=== PATIENT | female | born 1990 | race Hispanic/Latino ===

== ENCOUNTER 2020-03-08 02:15 | Observation (INO) | payer OTHER ==
[2020-03-08 03:06] LABS: Absolute Lymphocytes (CBC) 4.6 K/uL (0.7-4.9); Basophils % 0.8 % (0-1.3); Hematocrit 41.7 % (36.0-45.0); MPV 10.2 fL (7.6-11.3); Protime INR 0.97; RBC Red Blood Cell Count 4.55 M/uL (3.86-4.86)
[2020-03-08 03:13] LABS: BUN Blood Urea Nitrogen 12 mg/dL (7-18); Bicarbonate 24 mmol/L (21-32); Glucose Level 144 mg/dL (74-106); Potassium 3.7 mmol/L (3.5-5.1); Sodium Level 141 mmol/L (136-145)
--- NOTE | 2020-03-08 03:46 | EDPHYS ---
Physician Documentation [facility] Name: Bernard Guerra Age: 29 yrs Sex: Female : 1990 Arrival Date: 03/08/2020 Time: 02:15 Bed 8 Private MD: ED Physician Aroldo Vazquez HPI: 03/08 04:06 This 29 yrs old Female presents to ER via Ambulatory with complaints of S/S of tw4 Possible Stroke. 04:06 The patient's problem is reported as a facial droop, weakness, in the left lower tw4 extremity. Duration: yesterday, The episode is continuous. Associated signs and symptoms: The patient has no apparent associated signs or symptoms. Severity of symptoms: At their worst the symptoms were mild in the emergency department the symptoms are unchanged. The patient has not experienced similar symptoms in the past. DOCTOR OF RADIOLOGY: 02:30 LMP N/A - Irregular menses mt2 Historical: - Allergies: 02:29 Sulfa (Sulfonamide Antibiotics); mt2 02:29 Cipro PO; mt2 - PMHx: 02:29 Asthma; Anxiety; mt2 - Immunization history:: Adult Immunizations up to date. - Social history:: Smoking status: Patient denies any tobacco usage or history of. ROS: 04:06 Constitutional: Negative for fever, chills, and weight loss, Eyes: Negative for injury, tw4 pain, redness, and discharge, Cardiovascular: Negative for chest pain, palpitations, and edema, Respiratory: Negative for shortness of breath, cough, wheezing, and pleuritic chest pain, Abdomen/GI: Negative for abdominal pain, nausea, vomiting, diarrhea, and constipation, Back: Negative for injury and pain, MS/Extremity: Negative for injury and deformity, Skin: Negative for injury, rash, and discoloration. 04:06 Neuro: Positive for numbness, weakness. Exam: 04:06 Radiologist reports: no acute changes tw4 04:06 Constitutional: This is a well developed, well nourished patient who is awake, alert, and in no acute distress. Head/Face: Normocephalic, atraumatic. Cardiovascular: Regular rate and rhythm with a normal S1 and S2. No gallops, murmurs, or rubs. Normal PMI, no JVD. No pulse deficits. Respiratory: Lungs have equal breath sounds bilaterally, clear to auscultation and percussion. No rales, rhonchi or wheezes noted. No increased work of breathing, no retractions or nasal flaring. Abdomen/GI: Soft, non-tender, with normal bowel sounds. No distension or tympany. No guarding or rebound. No evidence of tenderness throughout. Back: No spinal tenderness. No costovertebral tenderness. Full range of motion. MS/ Extremity: Pulses equal, no cyanosis. Neurovascular intact. Full, normal range of motion. 04:06 Neuro: Orientation: is normal, Mentation: is normal, Motor: Strength is 3/5 in the right leg. Vital Signs: 02:25 BP 119 / 81; Pulse 80; Resp 16; Temp 98.0(O); Pulse Ox 99% on R/A; Pain 8/10; mt2 03:11 BP 123 / 59; Pulse 70; Resp 16; Pulse Ox 97% on R/A; Pain 8/10; mt2 04:10 BP 115 / 54; Pulse 80; Resp 16; Pulse Ox 98% on R/A; Pain 8/10; mt2 04:13 BP 120 / 80; Pulse 16; Resp 65; Pulse Ox 97% ; Pain 5/10; mt2 08:07 BP 118 / 66; Pulse 55; Resp 18; Temp 97.8; Pulse Ox 99% on R/A; em NIH Stroke Scale Scores: 02:25 NIHSS Score: 10 mt2 03:00 NIHSS Score: 9 mt2 04:00 NIHSS Score: 10 mt2 MDM: 02:18 Patient medically screened. tw4 04:14 Differential diagnosis: CVA. Data reviewed: vital signs, nurses notes. Data tw4 interpreted: Pulse oximetry: Interpretation: normal. Test interpretation: by ED physician or midlevel provider: ECG. Counseling: I had a detailed discussion with the patient and/or guardian regarding: the historical points, exam findings, and any diagnostic results supporting the discharge/admit diagnosis, lab results, radiology results. 03/08 02:32 Order name: Basic Metabolic Panel; Complete Time: 03:58 mt2 03/08 03:59 Interpretation: Normal except: GLUC 144; CL 111. tw4 03/08 02:32 Order name: CBC with Diff; Complete Time: 03:58 mt2 03/08 03:59 Interpretation: Normal except: WBC 11.3. tw4 03/08 02:32 Order name: Protime (+inr); Complete Time: 03:58 mt2 03/08 03:59 Interpretation: Within normal limits: PT 11.5. tw4 03/08 02:32 Order name: Ptt, Activated; Complete Time: 03:58 mt2 03/08 03:59 Interpretation: Within normal limits: PTT 35.5. tw4 03/08 02:54 Order name: Glucose, Ancillary Testing; Complete Time: 03:58 EDMS 03/08 03:59 Interpretation: Normal except: GLUC,ANCIL 133. tw4 03/08 04:30 Order name: COVID-19 mt2 03/08 02:32 Order name: CT Stroke Brain w/o Contrast 03/08 02:32 Order name: Stroke CXR 1 View 2 03/08 02:32 Order name: EKG; Complete Time: 02:32 mt2 03/08 02:32 Order name: Accucheck; Complete Time: 02:46 mt2 03/08 02:32 Order name: Cardiac monitoring; Complete Time: 02:46 03/08 02:32 Order name: EKG - Nurse/Tech; Complete Time: 02:46 mt2 03/08 05:58 Order name: CORONAVIRUS EDKS 03/08 06:55 Order name: SARS-COV-2 RT PCR [facility] 03/08 02:32 Order name: IV Saline Lock; Complete Time: 03:23 mt2 03/08 02:32 Order name: Labs collected and sent; Complete Time: 02:47 mt03/08 02:32 Order name: NPO; Complete Time: 02:46 03/08 02:32 Order name: O2 Per Protocol; Complete Time: 02:46 mt2 03/08 02:32 Order name: O2 Sat Monitoring; Complete Time: 02:47 mt2 03/08 02:32 Order name: Stroke Swallow Screen; Complete Time: 05:05 mt2 EC:06 Rate is 91 beats/min. Rhythm is regular. QRS Girard is Normal. SD interval is normal. QRS tw4 interval is normal. QT interval is normal. No Q waves. T waves are Normal. No ST changes noted. Clinical impression: Normal ECG. Interpreted by me. Reviewed by me. Administered Medications: No medications were administered Point of Care Testing: Blood Glucose: 02:30 Blood Glucose: 133 mg/dL; mt2 Ranges: Critical Glucose Levels:Adult <50 mg/dl or >400 mg/dl <40 mg/dl or >180 mg/dl Disposition: 03/08/20 03:45 Hospitalization ordered by Mary Dubose for Inpatient Admission. 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 - Bed requested for Telemetry/MedSurg (Inpatient). - Status is Inpatient Admission. ph - Condition is Stable. - Problem is new. - Symptoms have improved. NIH Stroke Scale - NIH Stroke Score Date: 03/08/2020 Time: 02:25 Total Score = 10 1a. Level of Consciousness (LOC) - 0(Alert) 1b. Level of Consciousness (LOC) (Year \T\ Age) - 0(Both) 1c. LOC Commands (Open \T\ Closes Eyes/Pinion Sorter) - 0(Both) 2. Best Gaze (Lateral Gaze Paresis) - 1(Partial gaze palsy) 3. Visual Field Loss - 0(No visual loss) 4. Facial Palsy - 2(Partial paralysis) 5a. Left Arm: Motor (10-second hold) - 0(No drift) 5b. Right Arm: Motor (10-second hold) - 0(No drift) 6a. Left Leg: Motor (5-second hold - always test supine) - 0(No drift) 6b. Right Leg: Motor (5-second hold - always test supine) - 3(No effort against gravity) 7. Limb Ataxia (finger/nose \T\ heel/webb - test with eyes open) - 1(Present in one limb) 8. Sensory Loss (pinprick arms/legs/face) - 1(Mild to moderate loss) 9. Best Language: Aphasia (description/naming/reading) - 1(Mild to moderate aphasia) 10. Dysarthria (speech clarity - read or repeat words) - 1(Mild to Moderate) 11. Extinction and Inattention (visual/tactile/auditory/spatial/personal) - 0(No abnormality) Initials: mt2 NIH Stroke Scale - NIH Stroke Score Date: 03/08/2020 Time: 03:00 Total Score = 9 1a. Level of Consciousness (LOC) - 0(Alert) 1b. Level of Consciousness (LOC) (Year \T\ Age) - 0(Both) 1c. LOC Commands (Open \T\ Closes Eyes/Pinion Sorter) - 0(Both) 2. Best Gaze (Lateral Gaze Paresis) - 1(Partial gaze palsy) 3. Visual Field Loss - 0(No visual loss) 4. Facial Palsy - 1(Minor Paralysis) 5a. Left Arm: Motor (10-second hold) - 0(No drift) 5b. Right Arm: Motor (10-second hold) - 0(No drift) 6a. Left Leg: Motor (5-second hold - always test supine) - 0(No drift) 6b. Right Leg: Motor (5-second hold - always test supine) - 3(No effort against gravity) 7. Limb Ataxia (finger/nose \T\ heel/webb - test with eyes open) - 1(Present in one limb) 8. Sensory Loss (pinprick arms/legs/face) - 1(Mild to moderate loss) 9. Best Language: Aphasia (description/naming/reading) - 1(Mild to moderate aphasia) 10. Dysarthria (speech clarity - read or repeat words) - 1(Mild to Moderate) 11. Extinction and Inattention (visual/tactile/auditory/spatial/personal) - 0(No abnormality) Initials: mt2 NIH Stroke Scale - NIH Stroke Score Date: 03/08/2020 Time: 04:00 Total Score = 10 1a. Level of Consciousness (LOC) - 0(Alert) 1b. Level of Consciousness (LOC) (Year \T\ Age) - 0(Both) 1c. LOC Commands (Open \T\ Closes Eyes/Pinion Sorter) - 0(Both) 2. Best Gaze (Lateral Gaze Paresis) - 1(Partial gaze palsy) 3. Visual Field Loss - 1(Partial hemianopia) 4. Facial Palsy - 1(Minor Paralysis) 5a. Left Arm: Motor (10-second hold) - 0(No drift) 5b. Right Arm: Motor (10-second hold) - 0(No drift) 6a. Left Leg: Motor (5-second hold - always test supine) - 0(No drift) 6b. Right Leg: Motor (5-second hold - always test supine) - 3(No effort against gravity) 7. Limb Ataxia (finger/nose \T\ heel/webb - test with eyes open) - 1(Present in one limb) 8. Sensory Loss (pinprick arms/legs/face) - 1(Mild to moderate loss) 9. Best Language: Aphasia (description/naming/reading) - 1(Mild to moderate aphasia) 10. Dysarthria (speech clarity - read or repeat words) - 1(Mild to Moderate) 11. Extinction and Inattention (visual/tactile/auditory/spatial/personal) - 0(No abnormality) Initials: mt2 Signatures: Dispatcher [employer] EDMS Juanita Blake Zarina Larsen RN RN Caren May RN RN Aroldo Vazquez MD MD tw4 Micaela Conley RN RN mt2 Corrections: (The following items were deleted from the chart) 03:11 02:59 Allergies: No Known Allergies; mt2 mt2 03:11 02:59 PMHx: None; mt2 mt2 04:00 03:45 Hospitalization Ordered by Mary Dubose MD for Inpatient Admission. 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 Bed requested for Telemetry/MedSurg (Inpatient). Status is Inpatient Admission. Condition is Stable. Problem is new. Symptoms have improved. tw4 07:52 04:00 03/08/2020 03:45 Hospitalization Ordered by Mary Dubose MD for bd Inpatient Admission. 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 Bed requested for [facility] ER HOLD. Status is Inpatient Admission. Condition is Stable. Problem is new. Symptoms have improved. 09:35 07:52 03/08/2020 03:45 Hospitalization Ordered by Mary Dubose MD for Inpatient Admission. 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 Bed requested for Telemetry/MedSurg (Inpatient). Status is Inpatient Admission. Condition is Stable. Problem is new. Symptoms have improved. bd
--- NOTE | 2020-03-08 03:46 | ER ---
Nurse's Notes [facility] Name: Bernard Guerra Age: 29 yrs Sex: Female : 1990 Arrival Date: 03/08/2020 Time: 02:15 Bed 8 Private MD: Diagnosis: Weakness;Chavez's palsy Presentation: 03/08 02:22 Method Of Arrival: Ambulatory mt2 02:25 Chief complaint: Patient states: PER PT CHAO ALL DAY AND RLE NUMBNESS AND LOW GRADE TEM. mt2 WAS TESTED FOR COVID ON SATURDAY. 1 HOUR PRIOR TO ARRIVAL NOTICED LOSS OF TASTE AND FACIAL DROOPING. Coronavirus screen: Client denies travel out of the [place] in the last 14 days. headache, loss of taste or smell, Client presents with at least one sign or symptom that may indicate coronavirus-19. Standard/surgical mask placed on the client. Provider contacted for isolation considerations. The client indicates previous COVID test results are pending. Date of collection: March 07, 2020. Ebola Screen: No symptoms or risks identified at this time. 02:25 An acute neurological deficit is present. The charge nurse has been notified. The mt2 patient has been moved to a treatment area. The patients blood glucose was checked before arriving to the hospital and was found to be normal. Initial Sepsis Screen: Does the patient meet any 2 criteria? No. Patient's initial sepsis screen is negative. Does the patient have a suspected source of infection? No. Patient's initial sepsis screen is negative. Risk Assessment: Do you want to hurt yourself or someone else? Patient reports no desire to harm self or others. Onset of symptoms was March 08, 2020 at 01:00. Care prior to arrival: None. 02:25 Acuity: BRENDEN 2 mt2 Triage Assessment: 02:25 The onset of the patients symptoms was March 08, 2020 at 01:00. General: Appears mt2 uncomfortable, Behavior is cooperative. Pain: Complains of pain in right leg Pain currently is 8 out of 10 on a pain scale. EENT: Reports difficulty swallowing since 0100. Neuro: Reports headache since 03/07/2020 numbness FACIAL DROOP. Cardiovascular: No deficits noted. Respiratory: No deficits noted. GI: No deficits noted. : No deficits noted. Derm: No deficits noted. Musculoskeletal: Reports pain in right leg since 03/07/2020. 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 - Social history:: Smoking status: Patient denies any tobacco usage or history of. Screenin:50 Abuse screen: Denies threats or abuse. Nutritional screening: No deficits noted. mt2 Tuberculosis screening: No symptoms or risk factors identified. Fall Risk None identified. Assessment: 02:25 Patient has been NPO before screening. The patient is alert, and able to follow mt2 commands. The patient exhibits slurred or garbled speech. The patient is exhibiting difficulty speaking. The patient does not exhibit difficulty understanding words. The patient is able to swallow own secretions with no drooling or need for suction. 02:25 Provider notified of bedside swallow screening results: Aroldo Vazquez MD. mt2 02:25 VAN Scoring: Arm Drift: Patients demonstrates NO arm weakness. Patient is VAN Negative. mt2 Visual Disturbance: No visual disturbance noted. Aphasia: Expressive aphasia noted. Provider notified of +VAN scoring. Neglect: No neglect noted. T-PA (Activase) Screening:. 03:00 Reassessment: No changes from previously documented assessment. Patient and/or family mt2 updated on plan of care and expected duration. Pain level reassessed. General: Appears uncomfortable, Behavior is cooperative. Pain: Complains of pain in face Pain currently is 5 out of 10 on a pain scale. Quality of pain is described as aching. 03:30 The patient did not tolerate one teaspoon of water. Drooling, immediate coughing, mt2 gurgling, or clearing of the throat was noted. Bedside swallow screening discontinued. Patient kept NPO until cleared by Speech Therapy or Physician. The patient did not tolerate 90mL of water. Drooling, immediate coughing, gurgling, or clearing of the throat was noted. The patient failed the bedside swallow screening. The patient will be kept NPO until cleared by Speech Therapy or Physician. 04:10 Reassessment: No changes from previously documented assessment. Patient and/or family mt2 updated on plan of care and expected duration. Pain level reassessed. Patient is alert, oriented x 3, equal unlabored respirations, skin warm/dry/pink. Reassessment: PATIENT ADMITTED AN ED HOLD. DEFER TO [facility] CHARTING AND ORDERS. General: Appears uncomfortable, Behavior is cooperative. Pain: Complains of pain in face Pain currently is 8 out of 10 on a pain scale. Quality of pain is described as aching. Vital Signs: 02:25 BP 119 / 81; Pulse 80; Resp 16; Temp 98.0(O); Pulse Ox 99% on R/A; Pain 8/10; mt2 03:11 BP 123 / 59; Pulse 70; Resp 16; Pulse Ox 97% on R/A; Pain 8/10; mt2 04:10 BP 115 / 54; Pulse 80; Resp 16; Pulse Ox 98% on R/A; Pain 8/10; mt2 04:13 BP 120 / 80; Pulse 16; Resp 65; Pulse Ox 97% ; Pain 5/10; mt2 08:07 BP 118 / 66; Pulse 55; Resp 18; Temp 97.8; Pulse Ox 99% on R/A; em NIH Stroke Scale Scores: 02:25 NIHSS Score: 10 mt2 03:00 NIHSS Score: 9 mt2 04:00 NIHSS Score: 10 mt2 ED Course: 02:15 Patient arrived in ED. bp1 02:17 Micaela Conley RN is Primary Nurse. mt2 02:18 Aroldo Vazquez MD is Attending Physician. tw4 02:25 Arm band placed on right wrist. EKG completed in triage. Results shown to MD. EKG mt2 completed in triage. Results shown to MD. 02:25 Patient has correct armband on for positive identification. Bed in low position. Call mt2 light in reach. Side rails up X 1. 02:47 CT Stroke Brain w/o Contrast In Process Unspecified. EDMS 02:59 Triage completed. mt2 03:12 Inserted saline lock: 20 gauge in left antecubital area, using aseptic technique. mt2 03:22 Stroke CXR 1 View In Process Unspecified. EDMS 03:44 Mary Dubose MD is Hospitalizing Provider. tw4 04:10 No provider procedures requiring assistance completed. Patient admitted, IV remains in mt2 place. 05:06 COVID-19 Sent. mt2 Administered Medications: No medications were administered Point of Care Testing: Blood Glucose: 02:30 Blood Glucose: 133 mg/dL; mt2 Ranges: Outcome: 03:45 Decision to Hospitalize by Provider. tw4 04:10 Admitted to ER Hold. Please see [employer] for further documentation. mt2 04:10 Condition: unchanged 04:10 Instructed on the need for admit. 09:35 Patient left the ED. NIH Stroke Scale - NIH Stroke Score Date: 03/08/2020 Time: 02:25 Total Score = 10 1a. Level of Consciousness (LOC) - 0(Alert) 1b. Level of Consciousness (LOC) (Year \T\ Age) - 0(Both) 1c. LOC Commands (Open \T\ Closes Eyes/Adhesive Bandage Machine Operator) - 0(Both) 2. Best Gaze (Lateral Gaze Paresis) - 1(Partial gaze palsy) 3. Visual Field Loss - 0(No visual loss) 4. Facial Palsy - 2(Partial paralysis) 5a. Left Arm: Motor (10-second hold) - 0(No drift) 5b. Right Arm: Motor (10-second hold) - 0(No drift) 6a. Left Leg: Motor (5-second hold - always test supine) - 0(No drift) 6b. Right Leg: Motor (5-second hold - always test supine) - 3(No effort against gravity) 7. Limb Ataxia (finger/nose \T\ heel/webb - test with eyes open) - 1(Present in one limb) 8. Sensory Loss (pinprick arms/legs/face) - 1(Mild to moderate loss) 9. Best Language: Aphasia (description/naming/reading) - 1(Mild to moderate aphasia) 10. Dysarthria (speech clarity - read or repeat words) - 1(Mild to Moderate) 11. Extinction and Inattention (visual/tactile/auditory/spatial/personal) - 0(No abnormality) Initials: [facility] NIH Stroke Scale - NIH Stroke Score Date: 03/08/2020 Time: 03:00 Total Score = 9 1a. Level of Consciousness (LOC) - 0(Alert) 1b. Level of Consciousness (LOC) (Year \T\ Age) - 0(Both) 1c. LOC Commands (Open \T\ Closes Eyes/Adhesive Bandage Machine Operator) - 0(Both) 2. Best Gaze (Lateral Gaze Paresis) - 1(Partial gaze palsy) 3. Visual Field Loss - 0(No visual loss) 4. Facial Palsy - 1(Minor Paralysis) 5a. Left Arm: Motor (10-second hold) - 0(No drift) 5b. Right Arm: Motor (10-second hold) - 0(No drift) 6a. Left Leg: Motor (5-second hold - always test supine) - 0(No drift) 6b. Right Leg: Motor (5-second hold - always test supine) - 3(No effort against gravity) 7. Limb Ataxia (finger/nose \T\ heel/webb - test with eyes open) - 1(Present in one limb) 8. Sensory Loss (pinprick arms/legs/face) - 1(Mild to moderate loss) 9. Best Language: Aphasia (description/naming/reading) - 1(Mild to moderate aphasia) 10. Dysarthria (speech clarity - read or repeat words) - 1(Mild to Moderate) 11. Extinction and Inattention (visual/tactile/auditory/spatial/personal) - 0(No abnormality) Initials: [facility] NIH Stroke Scale - NIH Stroke Score Date: 03/08/2020 Time: 04:00 Total Score = 10 1a. Level of Consciousness (LOC) - 0(Alert) 1b. Level of Consciousness (LOC) (Year \T\ Age) - 0(Both) 1c. LOC Commands (Open \T\ Closes Eyes/Adhesive Bandage Machine Operator) - 0(Both) 2. Best Gaze (Lateral Gaze Paresis) - 1(Partial gaze palsy) 3. Visual Field Loss - 1(Partial hemianopia) 4. Facial Palsy - 1(Minor Paralysis) 5a. Left Arm: Motor (10-second hold) - 0(No drift) 5b. Right Arm: Motor (10-second hold) - 0(No drift) 6a. Left Leg: Motor (5-second hold - always test supine) - 0(No drift) 6b. Right Leg: Motor (5-second hold - always test supine) - 3(No effort against gravity) 7. Limb Ataxia (finger/nose \T\ heel/webb - test with eyes open) - 1(Present in one limb) 8. Sensory Loss (pinprick arms/legs/face) - 1(Mild to moderate loss) 9. Best Language: Aphasia (description/naming/reading) - 1(Mild to moderate aphasia) 10. Dysarthria (speech clarity - read or repeat words) - 1(Mild to Moderate) 11. Extinction and Inattention (visual/tactile/auditory/spatial/personal) - 0(No abnormality) Initials: mt2 Signatures: Dispatcher [employer] Guzman Walker, RN Zarina Sweeney RN RN Aroldo Vazquez MD MD tw4 Larisa Choi Marlene, RN RN mt2 Corrections: (The following items were deleted from the chart) 03:11 02:59 Allergies: No Known Allergies; mt2 mt2 03:11 02:59 PMHx: None; mt2 mt2
--- NOTE | 2020-03-08 04:21 | P.HP ---
Certification for Inpatient Patient admitted to: Observation With expected LOS: <2 Midnights Patient will require the following post-hospital care: None Practitioner: I am a practitioner with admitting privileges, knowledge of patient current condition, hospital course, and medical plan of care. Services: Services provided to patient in accordance with Admission requirements found in Title 42 Section 412.3 of the Code of Federal Regulations <Braden Rojas - Last Filed: 03/08/20 04:16> Patient History Date of Service: 03/08/20 Primary Care Provider: Dr Blunt Reason for admission: Chavez's palsy vs CVA History of Present Illness: 29-year-old female with a past medical history of anxiety presents to the emergency room complaining of right-sided weakness and tingling. States that it started earlier today when she lost her taste. States that her main concern is the inability to lift her right leg. In the ER patient is alert and oriented x3. In no distress. She has noticeable right-sided facial drooping, right arm numbness and she cannot lift her right leg. She has 5/5 strength in all extremities. Denies any history of Chavez's palsy but states that her mom has a history of Chavez's palsy and CVAs. Father from a [place] when she was 7. CT of the brain is negative for acute pa thology. Chest x-ray is also negative for acute pathology. ER lab work overall is unremarkable. Patient is an employee of the [employer]. She is a nurse in the Covid unit. Home medications list reviewed: Yes - Past Medical/Surgical History Diabetic: No -: Anxiety -: Cholecystectomy Psychosocial/ Personal History: Lives at home with family - Family History Mother -: Stroke Father -: Heart disease - Social History Smoking Status: Never smoker Alcohol use: No CD- Drugs: No Caffeine use: Yes Place of Residence: Home <BobBraden - Last Filed: 03/08/20 04:16> Date of Service: 03/08/20 <Mary Dubose - Last Filed: 03/14/20 01:41> Allergies Sulfa (Sulfonamide Antibiotics) Allergy (Severe, Verified 03/08/20 10:02) Itching escitalopram [From Lexapro] Allergy (Mild, Verified 03/08/20 10:03) Rash Review of Systems General: Weakness, As per HPI Eyes: Unremarkable ENT: As per HPI Respiratory: Unremarkable Cardiovascular: Unremarkable Gastrointestinal: Unremarkable Genitourinary: Unremarkable Musculoskeletal: As per HPI Integumentary: Unremarkable Neurological: Weakness, Numbness, As per HPI Lymphatics: Unremarkable <BobBraden - Last Filed: 03/08/20 04:16> Physical Examination - Physical Exam General: Alert, In no apparent distress, Oriented x3, Cooperative HEENT: Atraumatic, PERRLA, Other (Right-sided facial drooping) Neck: Supple, No Thyromegaly, Other (Trachea midline) Respiratory: Clear to auscultation bilaterally, Normal air movement Cardiovascular: No edema, Normal pulses, Regular rate/rhythm, Normal S1 S2 Capillary refill: <2 Seconds Gastrointestinal: Normal bowel sounds, Soft and benign, Non-distended Musculoskeletal: No swelling, No contractures, No erythema, No tenderness Integumentary: No breakdown, No significant lesion, No tenderness/swelling Neurological: Normal speech, Normal strength at 5/5 x4 extr, Abnormal gait, Abnormal sensation (Right arm) - Studies Laboratory Data (last 24 hrs) 03/08/20 02:46: PT 11.5, INR 0.97, APTT 35.5 03/08/20 02:46: WBC 11.3 H, Hgb 14.3, Hct 41.7, Plt Count 229 03/08/20 02:46: Sodium 141, Potassium 3.7, BUN 12, Creatinine 0.73, Glucose 144 H <Braden Rojas - Last Filed: 03/08/20 04:16> Assessment and Plan - Plan Impression: Chavez's palsy vs CVA?: Anxiety: Plan: Chavez's palsy vs CVA?: Patient has a family history of Chavez's palsy and a CVA on her mother side. Patient denies any prior history. 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 CT of the head negative for acute path ology. Will order MRI of the brain. Will order neurology consult. Will start empiric prednisone 40 mg b.i.d. to treat possible Chavez's palsy. She is also complaining of loss of taste. Droplet precautions. Fall precautions. Anxiety: Will resume all medications. Patient takes anxiety medication p.r.n.. Discharge Plan: Home Plan to discharge in: 48 Hours - Advance Directives Does patient have a Living Will: No Does patient have a Durable POA for Healthcare: No - Code Status/Comfort Care Code Status Assessed: Yes Time Spent Managing Pts Care (In Minutes): 55 <Braden Rojas - Last Filed: 03/08/20 04:16> Date of Service: 03/08/20 PATIENT HAD FACIAL DROOP ON THE RIGHT. 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 PATIENT WILL E ADMITTED FOR FURTHER EVALUATION <Mary Dubose - Last Filed: 03/14/20 01:41>
[2020-03-08] MEDS ORDERED: ASPIRIN EC 81 MG TAB PO ONE (04:27)
[2020-03-08 04:45] VITALS: BMI 49.2
[2020-03-08] MEDS ORDERED: KETOROLAC 30 MG/ML INJ IV ONE (04:59)
[2020-03-08] MEDS: NA CHLORIDE 0.9% 1,000 ML IV SCH ×2 (05:00→09:37)
[2020-03-08] MEDS ORDERED: KETOROLAC 30 MG/ML INJ ONE (05:19)
[2020-03-08] MEDS ORDERED: NA CHLORIDE 0.9% 1,000 ML ONE (05:59)
--- NOTE | 2020-03-08 08:09 | RAD REPORT ---
EXAM DESCRIPTION: Yrn Single View03/08/2020 3:22 am CLINICAL HISTORY: Fever/asthma COMPARISON: 2008 FINDINGS: The lungs appear clear of acute infiltrate. The heart is normal size IMPRESSION: No acute abnormalities displayed
[2020-03-08] MEDS ORDERED: ENOXAPARIN 40 MG/0.4 ML SQ SCH (09:00)
[2020-03-08] MEDS: predniSONE 20 MG TAB PO SCH ×2 (09:00→10:48)
[2020-03-08 09:53] VITALS: O2SAT 99
[2020-03-08] MEDS ORDERED: KCL 20 MEQ/100 mL IVPB 20 MEQ/100 ML BAG IV SCH (10:00)
--- NOTE | 2020-03-08 10:27 | RAD REPORT ---
EXAM DESCRIPTION: CT - Ct Stroke Brain Wo Cont - 03/08/2020 6:34 am CLINICAL HISTORY: Slurred speech;Numbness COMPARISON: None. TECHNIQUE: CT HEAD WITHOUT IV CONTRAST on 03/08/2020 2:32 AM CDT This exam was performed according to our departmental dose-optimization program, which includes autom ated exposure control, adjustment of the mA and/or kV according to patient size and/or use of iterati ve reconstruction technique. FINDINGS: There is no acute hemorrhage, mass effect or midline shift. Stout-white differentiation is preserved. There is no hydrocephalus. There is no significant volume loss for age. The calvarium is intact. Orbits and globes are unremarkable. The paranasal sinuses are clear. Mastoid air cells are clear. IMPRESSION: No acute intracranial findings. Electronically signed by: Estrada Amaya MD 03/08/2020 2:59 AM CDT Due to temporary technical issues with the PACS/Fluency reporting system, reports are being signed by the in house radiologist without review as a courtesy to ensure prompt reporting. The interpreting r adiologist is fully responsible for the content of the report.
--- NOTE | 2020-03-08 10:44 | EKG ---
Test Date: 2020-03-08 Test Time: 02:30:38 Patcher Helper: DAISHA MEASUREMENT RESULTS: Intervals: Rate: 91 DE: 162 QRSD: 96 QT: 376 QTc: 462 [place]: P: 39 DE: 162 QRS: 17 T: 19 INTERPRETIVE STATEMENTS: Normal sinus rhythm Normal ECG No previous ECG available for comparison Electronically Signed On 03-08-20 10:43:18 CDT by Jose Redmond
--- NOTE | 2020-03-08 11:07 | RAD REPORT ---
EXAM DESCRIPTION: MRI - Brain Wo Cont - 03/08/2020 9:20 am CLINICAL HISTORY: CVA/right-sided weakness COMPARISON: March 08, 2020 cat scan TECHNIQUE: Axial, sagittal, and coronal magnetic images of the brain were obtained. Contrast was not requested FINDINGS: No significant abnormal signal is present within the brain. Diffusion-weighted/ADC mapping does not reveal evidence of acute infarction. The ventricles are normal caliber. An extra-axial fluid collection is not present Fluid within the sinuses/mastoids is not noted IMPRESSION: No acute abnormality is displayed
[2020-03-08 11:49] VITALS: BP 131/66; TEMP 97.8
[2020-03-08 12:00] LABS: Urine Appearance CLEAR; Urine Bilirubin NEGATIVE (NEG); Urine Blood NEGATIVE (NEG); Urine Color YELLOW; Urine Glucose NEGATIVE (NEG); Urine Protein NEGATIVE (NEG); Urine Specific Gravity >=1.030 (1.005-1.030); Urine Urobilinogen 0.2 mg/dL (0.2-1.0)
[2020-03-08 12:34] LABS: Urine Bacteria >50 /HPF (<20); Urine Culture Reflex Order REFLEXED; Urine RBC <5 /HPF (NONE SEEN)
--- NOTE | 2020-03-14 01:44 | P.DS ---
Discharge Date: 03/08/20 Primary Care Provider: Dr Blunt Disposition: ROUTINE DISCHARGE Discharge Condition: GOOD Reason for Admission: Chavez's palsy vs CVA Consultations: NEUROLOGY Brief History of Present Illness: PATIENT IS A 29YO WHO WAS ADMITTED WITYH RIGHT SIDED FACIAL DROOP. PATIENT HAD CHAVEZ'S PALSY. PATIENT WILL BE ADMITTED FOR FURTHER EVALUATION. Hospital Course: PATIENT'S WORK-UP HAS BEEN UNREMARKABLE. PATIENT IS STABLE FOR DISCHARGE FOR OUTPT FOLLOW-UP. CONTINUE WITH STEROIDS, AND POSSIBLY ANTIVIRAL. Vital Signs/Physical Exam: Temp Pulse Resp BP Pulse Ox 97.8 F 69 18 131/66 98 03/08/20 11:25 03/08/20 11:25 03/08/20 11:25 03/08/20 11:25 03/08/20 11:25 General: Alert, In no apparent distress, Oriented x3 Laboratory Data at Discharge: WBC 11.3 K/uL (4.3-10.9) H 03/08/20 02:46 Hgb 14.3 g/dL (12.0-15.0) 03/08/20 02:46 Hct 41.7 % (36.0-45.0) 03/08/20 02:46 Plt Count 229 K/uL (152-406) 03/08/20 02:46 PT 11.5 SECONDS (9.5-12.5) 03/08/20 02:46 INR 0.97 03/08/20 02:46 APTT 35.5 SECONDS (24.3-36.9) 03/08/20 02:46 Sodium 141 mmol/L (136-145) 03/08/20 02:46 Potassium 3.7 mmol/L (3.5-5.1) 03/08/20 02:46 BUN 12 mg/dL (7-18) 03/08/20 02:46 Creatinine 0.73 mg/dL (0.55-1.3) 03/08/20 02:46 Glucose 144 mg/dL (74-106) H 03/08/20 02:46 Home Medications: Albuterol Inhaler [Ventolin Inhaler*] 1 puff IH TID PRN 03/08/20 Vortioxetine Hydrobromide [Trintellix] 1 tab PO DAILY 03/08/20 clonazePAM [Klonopin*] 1 tab PO BEDTIME PRN 03/08/20 predniSONE [Prednisone*] 20 mg PO BID #12 tab 03/08/20 New Medications: predniSONE [Prednisone*] 20 mg PO BID #12 tab Patient Discharge Instructions: OK TO DC IV AND DC HOME. FOLLOW-UP WITH PRIMARY CARE PROVIDER IN 1-2 WEEKS. FOLLOW-UP WITH NEUROLOGY IN 1-2 WEEKS. RETURN TO THE ER IF symptoms worsen. CALL or TEXT DR. BROOKS AT [phone] IF ANY QUESTIONS REGARDING HOSPITAL STAY. PLEASE CALL THE FLOOR AT [phone] IF ANY MEDICATION OR NURSING QUESTIONS. Diet: AHA Activity: Fall precautions Followup: Robbin Rodas MD [ASSOCIATE-ACTIVE - CAN ADMIT] - (Call to make an appointment. ) Time spent managing pt's care (in minutes): 35
== END 2020-03-08 13:35 | disposition home or self-care (01) ==
LOC: ER 02:15 → ERHOLD 04:13 → UNDOADMOB 04:13 → 2ND 08:15 → ERHOLD 08:15
PROVIDERS: ADMIT Hospitalist; ATTEND Hospitalist
DX: G51.0 Bell's palsy (principal); F41.9 Anxiety disorder, unspecified; J45.909 Unspecified asthma, uncomplicated; R29.710 NIHSS score 10; Z20.828 Contact with and (suspected) exposure to other viral communicable diseases; Z88.2 Allergy status to sulfonamides; Z82.3 Family history of stroke; Z82.49 Family history of ischemic heart disease and other diseases of the circulatory system
CPT/HCPCS: 93005; 87088; 85025; 81001; 87086; 80048; 36415; 85610; 82947; 85730; 70450; 71045; 70551; 99285; U0003; J7512; J3480; J1650; J7030 ×2; G0378 ×2